=== PATIENT | female | born 1960 | race Caucasian/White ===

== ENCOUNTER → 2016-04-19 | Outpatient (CLI) | payer BC ==
--- NOTE | 2016-04-21 08:11 | MM ---
Reason for exam: screening (asymptomatic). Last mammogram was performed 1 year ago. History: Patient is postmenopausal and history of other cancer. Family history of breast cancer in paternal aunt at age 60, breast cancer in paternal cousin, and breast cancer in maternal aunt at age 80. Excisional biopsy of the left breast, 1979. Physical Findings: A clinical breast exam by your physician is recommended on an annual basis and results should be correlated with mammographic findings. MG 3D Screening Mammo W/Cad Bilateral CC and MLO view(s) were taken. Prior study comparison: April 10, 2015, bilateral MG 3d screening mammo w/cad. April 09, 2014, bilateral MG screening mammo w CAD. The breast tissue is heterogeneously dense. This may lower the sensitivity of mammography. No significant changes when compared with prior studies. ASSESSMENT: Benign, BI-RAD 2 RECOMMENDATION: Routine screening mammogram of both breasts in 1 year.
== END | disposition home or self-care (01) ==
LOC: RADMAMWWP 16:36
PROVIDERS: ATTEND Obstetrics & Gynecology
DX: Z12.31 Encounter for screening mammogram for malignant neoplasm of breast (principal)
CPT/HCPCS: 77063; G0202

== ENCOUNTER → 2017-05-02 | Outpatient (CLI) | payer BC ==
--- NOTE | 2017-05-03 11:38 | BD ---
EXAMINATION TYPE: MG DEXA axial skeleton. DATE OF EXAM: 05/02/2017 COMPARISON: 2014 CLINICAL HISTORY: Osteoporosis screening. Postmenopausal female. Height: 5'6 1/2 Weight: 146 FRAX RISK QUESTIONS: Alcohol (3 or more units per day): no Family History (Parent hip fracture): no Glucocorticoids (More than 3mos): no (Ex: prednisone, prednisolone, methylprednisolone, dexamethasone, and hydrocortisone). History of Fracture in Adulthood: no Secondary Osteoporosis: 1. Type 1 Diabetes: no 2. Hyperthyroidism: no 3. Menopause before 45: no 4. Malnutrition: no 5. Chronic liver disease: no Rheumatoid Arthritis: no Current Tobacco Use: no RISK FACTORS HISTORY OF: Postmenopausal woman: MEDICATIONS: Additional Medications: Additional History: skin cancer 2011 EXAM MEASUREMENTS: Bone mineral densitometry was performed using the [employer] System. Bone mineral density as measured about the Lumbar spine is: ----- L1-L4(G/cm2): 1.025 T Score Values are as follows: ----- L2: -1.7 ----- L3: -0.9 ----- L4: -1.6 ----- L1-L4: -1.3 Bone mineral density has: Increased 0.2% since study of: 04/11/2014 Bone mineral density about the R hip (g/cm2): 0.860 Bone mineral density about the L hip (g/cm2): 0.873 T Score values are as follows: -----R Neck: -1.3 -----L Neck: -1.2 -----R Total: -1.3 -----L Total: -1.3 Bone mineral density has: Decreased -3.3% since study of: 04/11/3014 IMPRESSION: Osteopenia (T Score between -2.5 and -1). There is slightly increased risk of fracture and the patient may be considered for treatment. Re-Screen 2-5 years. NOTE: T-SCORE=SD OF THE YOUNG ADULT MEAN.
--- NOTE | 2017-05-03 14:33 | MM ---
Reason for exam: screening (asymptomatic). Last mammogram was performed 1 year ago. History: Patient is postmenopausal and history of other cancer. Family history of breast cancer in paternal aunt at age 60, breast cancer in paternal cousin, and breast cancer in maternal aunt at age 80. Excisional biopsy of the left breast, 1979. Physical Findings: A clinical breast exam by your physician is recommended on an annual basis and results should be correlated with mammographic findings. MG 3D Screening Mammo W/Cad Bilateral CC and MLO view(s) were taken. Prior study comparison: April 19, 2016, bilateral MG 3d screening mammo w/cad. April 10, 2015, bilateral MG 3d screening mammo w/cad. The breast tissue is heterogeneously dense. This may lower the sensitivity of mammography. No suspicious abnormality. No significant changes when compared with prior studies. ASSESSMENT: Negative, BI-RAD 1 RECOMMENDATION: Routine screening mammogram of both breasts in 1 year.
== END | disposition home or self-care (01) ==
LOC: RADMAMWWP 14:37
PROVIDERS: ATTEND Obstetrics & Gynecology
DX: Z12.31 Encounter for screening mammogram for malignant neoplasm of breast (principal); M85.80 Other specified disorders of bone density and structure, unspecified site
CPT/HCPCS: 77063; 77067; 77080

== ENCOUNTER → 2019-08-20 | Outpatient (CLI) | payer BC ==
--- NOTE | 2019-08-21 16:26 | BD ---
EXAMINATION TYPE: Axial Bone Density DATE OF EXAM: 08/20/2019 COMPARISON: 05/02/2017 CLINICAL HISTORY: Height: 65.7 IN Weight: 150 LBS RISK FACTORS HISTORY OF: Active: YES Postmenopausal woman: AGE 54 MEDICATIONS: Additional Medications: CALCIUM, VIT D, EXAM MEASUREMENTS: Bone mineral densitometry was performed using the [employer] System. Bone mineral density as measured about the Lumbar spine is: ----- L1-L4(G/cm2): 0.978 T Score Values are as follows: ----- L2: -2.3 ----- L3: -1.2 ----- L4: -2.0 ----- L1-L4: -1.7 Bone mineral density has: Decreased -5.1% since study of: 05/02/2017 Bone mineral density about the R hip (g/cm2): 0.863 Bone mineral density about the L hip (g/cm2): 0.843 T Score values are as follows: -----R Neck: -1.3 -----L Neck: -1.4 -----R Total: -1.4 -----L Total: -1.5 Bone mineral density has: Decreased -2.5% since study of: 05/02/2017 IMPRESSION: Osteopenia (T Score between -2.5 and -1). There is slightly increased risk of fracture and the patient may be considered for treatment. Re-Screen 2-5 years. NOTE: T-SCORE=SD OF THE YOUNG ADULT MEAN.
--- NOTE | 2019-08-22 13:27 | MM ---
Reason for exam: screening (asymptomatic). Last mammogram was performed 1 year and 4 months ago. History: Patient is postmenopausal and history of other cancer. Family history of breast cancer in paternal aunt at age 60, breast cancer in paternal cousin, and breast cancer in maternal aunt at age 80. Excisional biopsy of the left breast, 1979. Physical Findings: A clinical breast exam by your physician is recommended on an annual basis and results should be correlated with mammographic findings. MG 3D Screening Mammo W/Cad Bilateral CC and MLO view(s) were taken. Prior study comparison: May 04, 2018, bilateral MG 3d screening mammo w/cad. May 02, 2017, bilateral MG 3d screening mammo w/cad. April 19, 2016, bilateral MG 3d screening mammo w/cad. The breast tissue is heterogeneously dense. This may lower the sensitivity of mammography. No significant changes when compared with prior studies. ASSESSMENT: Negative, BI-RAD 1 RECOMMENDATION: Routine screening mammogram of both breasts in 1 year.
== END | disposition home or self-care (01) ==
LOC: RADMAMWWP 15:21
PROVIDERS: ATTEND Obstetrics & Gynecology
DX: Z12.31 Encounter for screening mammogram for malignant neoplasm of breast (principal); M85.80 Other specified disorders of bone density and structure, unspecified site
CPT/HCPCS: 77063; 77067; 77080

== ENCOUNTER → 2020-08-29 | Outpatient (CLI) | payer BC ==
--- NOTE | 2020-09-01 11:38 | MM ---
Reason for exam: screening (asymptomatic). Last mammogram was performed 1 year ago. History: Patient is postmenopausal and history of other cancer. Family history of breast cancer in paternal aunt at age 60, breast cancer in paternal cousin, and breast cancer in maternal aunt at age 80. Excisional biopsy of the left breast, 1979. Physical Findings: A clinical breast exam by your physician is recommended on an annual basis and results should be correlated with mammographic findings. MG 3D Screening Mammo W/Cad Bilateral CC and MLO view(s) were taken. Prior study comparison: August 20, 2019, bilateral MG 3d screening mammo w/cad. May 04, 2018, bilateral MG 3d screening mammo w/cad. The breast tissue is heterogeneously dense. This may lower the sensitivity of mammography. ASSESSMENT: Negative, BI-RAD 1 RECOMMENDATION: Routine screening mammogram of both breasts in 1 year.
== END | disposition home or self-care (01) ==
LOC: RADMAMWWP 11:53
PROVIDERS: ATTEND Obstetrics & Gynecology
DX: Z12.31 Encounter for screening mammogram for malignant neoplasm of breast (principal); Z85.9 Personal history of malignant neoplasm, unspecified; Z78.0 Asymptomatic menopausal state; Z80.3 Family history of malignant neoplasm of breast
CPT/HCPCS: 77063; 77067

== ENCOUNTER → 2021-09-09 | Outpatient (CLI) | payer BC ==
--- NOTE | 2021-09-10 17:20 | MM ---
Reason for Exam: Screening (asymptomatic). Last screening mammogram was performed 12 month(s) ago. Patient History: Menarche at age 15. First Full-Term at age 25. Postmenopausal. Other cancer. 1979, Excisional Biopsy on the Left side. Paternal cousin had breast cancer. Paternal aunt had breast cancer, age 60. Maternal aunt had breast cancer, age 80. Risk Values: Roxana 5 year model risk: 1.4%. NCI Lifetime model risk: 7.1%. Prior Study Comparison: 05/04/2018 Bilateral Screening Mammogram, [facility]. 08/20/2019 Bilateral Screening Mammogram, [facility]. 08/29/2020 Bilateral Screening Mammogram, [facility]. Tissue Density: The breast tissue is heterogeneously dense. This may lower the sensitivity of mammography. Findings: Analyzed By CAD. Areas of asymmetric density remain unchanged. No significant change from prior exams. Overall Assessment: Benign, BI-RAD 2 Management: Screening Mammogram of both breasts in 1 year. 1. Patient should continue monthly self breast exams. 2. A clinical breast exam by your physician is recommended on an annual basis. 3. This exam should not preclude additional follow-up of suspicious palpable abnormalities. Electronically signed and approved by: Nas Noguera M.D. Radiologist
--- NOTE | 2021-09-14 09:15 | BD ---
EXAMINATION TYPE: Axial Bone Density DATE OF EXAM: 09/09/2021 COMPARISON: 05-02-2017 CLINICAL HISTORY: 61 years year old Female. ICD-10 CODE: ,Z78.0 menopausal,N95.1 menopausal Height: 66IN Weight: 156 FRAX RISK QUESTIONS: Secondary Osteoporosis: RISK FACTORS HISTORY OF: Active: YES Postmenopausal woman: YES MENOPAUSE AT 53 MEDICATIONS: Additional Medications: CALCIUM OFF AND ON Additional History: EXAM MEASUREMENTS: Bone mineral densitometry was performed using the [employer] System. Bone mineral density as measured about the Lumbar spine is: ----- L1-L4(G/cm2): 0.963 T Score Values are as follows: ----- L1: -1.8 ----- L2: -2.2 ----- L3: -1.5 ----- L4: -2.0 ----- L1-L4: -1.8 Bone mineral density has: Decreased -5.3% since study of: 05-02-2017 Bone mineral density about the R hip (g/cm2): 0.854 Bone mineral density about the L hip (g/cm2): 0.823 T Score values are as follows: -----R Neck: -1.2 -----L Neck: -1.5 -----R Total: -1.2 -----L Total: -1.5 Bone mineral density has: Decreased -0.6% since study of: 05-02-2017 FRAX%s: The graph provided illustrates a 8.1% chance for a major osteoporotic fx and a 0.7% chance fo r the hips probability for fx in 10 years time. IMPRESSION: Osteopenia (T Score between -2.5 and -1). There is slightly increased risk of fracture and the patient may be considered for treatment. Re-Screen 2-5 years. NOTE: T-SCORE=SD OF THE YOUNG ADULT MEAN.
== END | disposition home or self-care (01) ==
LOC: RADBDWWP 07:18
PROVIDERS: ATTEND Obstetrics & Gynecology
DX: Z12.31 Encounter for screening mammogram for malignant neoplasm of breast (principal); Z78.0 Asymptomatic menopausal state; Z80.3 Family history of malignant neoplasm of breast
CPT/HCPCS: 77063; 77067; 77080

== ENCOUNTER → 2022-09-10 | Outpatient (CLI) | payer BC ==
--- NOTE | 2022-09-13 07:52 | MM ---
Reason for Exam: Screening (asymptomatic). Last screening mammogram was performed 12 month(s) ago. Patient History: Menarche at age 15. First Full-Term at age 25. Postmenopausal. Other cancer. 1979, Excisional Biopsy on the Left side. Paternal cousin had breast cancer. Paternal aunt had breast cancer, age 60. Maternal aunt had breast cancer, age 80. Risk Values: Roxana 5 year model risk: 1.4%. NCI Lifetime model risk: 6.9%. Prior Study Comparison: 08/20/2019 Bilateral Screening Mammogram, [facility]. 08/29/2020 Bilateral Screening Mammogram, [facility]. 09/09/2021 Bilateral MG 3D screening mammo w/cad, [facility]. Tissue Density: The breast tissue is heterogeneously dense. This may lower the sensitivity of mammography. Findings: Analyzed By CAD. There is no suspicious group of microcalcifications or new suspicious mass in either breast. Overall Assessment: Negative, BI-RAD 1 Management: Screening Mammogram of both breasts in [address] [facility] will attempt to contact patient to return for supplemental views and ultrasound if indicated. Patient should continue monthly self-breast exams. A clinical breast exam by your physician is recommended on an annual basis. This exam should not preclude additional follow-up of suspicious palpable abnormalities. Note on Roxana scores and lifetime risk: 1. A Roxana score greater than 3% is considered moderate risk. If this is the case, consider specialist referral to assess eligibility for a risk reducing agent. 2. If overall lifetime risk for the development of breast cancer is 20% or higher, the patient may qualify for future screening with alternating mammogram and breast MRI. Electronically signed and approved by: Jose Kirk DO
== END | disposition home or self-care (01) ==
LOC: RADMAMWWP 09:39
PROVIDERS: ATTEND Obstetrics & Gynecology
DX: Z12.31 Encounter for screening mammogram for malignant neoplasm of breast (principal); Z78.0 Asymptomatic menopausal state; Z80.3 Family history of malignant neoplasm of breast
CPT/HCPCS: 77063; 77067

== ENCOUNTER → 2023-11-16 | Outpatient (CLI) | payer BC ==
[2023-11-16 09:32] VITALS: BP 151/89; PULSE 67; RESP 16; TEMP 98.3
--- NOTE | 2023-11-16 10:12 | P.HPOB ---
History of Present Illness H&P Date: 11/16/23 Chief Complaint: The patient is here for her routine gynecologic exam and ma mmogram. This is a 63-year-old with an LMP of 2013. The patient is here to establish with this office. It has been about a year since her last pelvic exam. She previously saw Dr. Galindo for her gynecologic care. She is without gynecologic complaints and denies any postmenopausal bleeding. She states she has been seen regularly for gynecologic care and Pap smears. She has no history of cervical problems. Review of Systems The patient has gained 6 pounds over the last year. She denies respiratory, cardiac, or G.I. problems. Past Medical History Past Medical History: Cancer, GERD/Reflux Additional Past Medical History / Comment(s): BASAL CELL REMOVED FROM NOSE AND SHOULDER, HEART MURMUR. Intermittent neutropenia(followed by evaluator transfer students). 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 History of Any Multi-Drug Resistant Organisms: None Reported Past Surgical History: Breast Surgery Additional Past Surgical History / Comment(s): BENIGN BREAST CYST REMOVED 1982. Colonoscopy 2022(next after 10yr). Past Anesthesia/Blood Transfusion Reactions: No Reported Reaction Past Psychological History: No Psychological Hx Reported Smoking Status: Never smoker Past Alcohol Use History: Occasional (2-3 drinks per week.) Past Drug Use History: None Reported Additional History: She has been since 1982. 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 She now watches one of her grandchildren during the week. - Past Family History Father Family Medical History: Cancer, Hypertension Additional Family Medical History / Comment(s): Sinus cancer. . Paternal cousin had breast cancer. Mother Family Medical History: Cancer Additional Family Medical History / Comment(s): Brain tumor. . Maternal aunt had breast cancer. Brother(s) Family Medical History: Liver Disease Additional Family Medical History / Comment(s): Alcohol induced liver cirrhosis. . Medications and Allergies Home Medications Medication Instructions Recorded Confirmed Type Alendronate Sodium [Fosamax] 70 mg PO WEEKLY 11/16/23 11/16/23 History Calcium Carbonate [Calcium] 600 mg PO DAILY 11/16/23 11/16/23 History Cholecalciferol (Vitamin D3) 1 cap PO DAILY 11/16/23 11/16/23 History [Vitamin D3 (125 MCG = 5,000 IU)] Cyanocobalamin [Vitamin B-12] 1 tab PO DAILY 11/16/23 11/16/23 History Famotidine [Pepcid] 10 mg PO DAILY 11/16/23 11/16/23 History Multivitamin [Multivitamins Adult 1 tab PO DAILY 11/16/23 11/16/23 History Gummies] Allergies Allergy/AdvReac Type Severity Reaction Status Date / Time nitrofurantoin Allergy Rapid Unverified 11/16/23 09:26 [From Macrobid] Heart Rate prednisone Allergy Rapid Unverified 11/16/23 09:26 Heart Rate Sulfa (Sulfonamide Allergy Rash/Hives Unverified 11/16/23 09:26 Antibiotics) Exam Vital Signs Temp Pulse Resp BP Pulse Ox 11/16/23 09:28 98.3 F 67 16 151/89 99 Intake and Output 11/15/23 11/16/23 11/16/23 22:59 06:59 14:59 Other: Weight 73.936 kg Height 5 feet 7 inches, weight 163 pounds, BMI 25.5. This is a well-developed well-nourished white female who is alert and oriented times 3 in no acute distress. HEENT: Within normal limits. NECK: Supple without mass or thyromegaly. CHEST AND LUNGS: Clear to auscultation. HEART: Regular rate and rhythm. BREASTS: Are without mass or discharge. AXILLARY EXAM: Negative for adenopathy. BACK: Negative for CVA tenderness. ABDOMEN: Soft, nontender, without palpable masses. PELVIC EXAM: Normal external genitalia with minimal atrophy. Cervix and vagina appear normal with minimal atrophy. There is no unusual discharge. There is no evidence of prolapse. The uterus is midposition, nongravid size and nontender. There are no palpable adnexal masses or tenderness. RECTAL EXAM: Rectovaginal exam is negative for mass or tenderness and is negative for occult blood. EXTREMITIES: Nontender. IMPRESSION: 1. 63-year-old menopausal female with normal gynecologic exam. 2. Elevated blood pressure. 3. History of osteopenia and she has been on alendronate since 2021. PLAN: 1. Pap smear cotest was performed. If negative, we will plan on repeating the Pap smear cotest in about 4 to 5 years and if that 1 is negative we will plan on discontinuing Pap smears. 2. Self breast awareness was discussed with the patient. We have also discussed symptoms associated with inflammatory breast cancer. 3. Screening mammogram will be done today. 4. Osteoporosis prevention was discussed. I have stressed the importance of adequate calcium, vitamin D and regular exercise. Recommended amounts of calcium and vitamin D were also discussed. Bone density test will be done today. She will continue on alendronate at this time as prescribed by her PCP. 5. We have discussed her elevated blood pressure. She will check her own blood pressure at home since she does have a blood pressure cuff. This will be done on a regular basis and she will follow-up with her PCP for blood pressure elevations. 6. She was advised to return in one year for her annual well woman exam.
--- NOTE | 2023-11-16 11:56 | BD ---
EXAMINATION TYPE: Axial Bone Density DATE OF EXAM: 11/16/2023 CLINICAL HISTORY: 63 years old Female. ICD-10 CODE: Z78.0 POST MENOPAUSAL WITHOUT HRT Height: 66" Weight: 161lbs FRAX RISK QUESTIONS: Alcohol (3 or more units per day): No Family History (Parent hip fracture): No Glucocorticoids (More than 3mos): No (Ex: prednisone, prednisolone, methylprednisolone, dexamethasone, and hydrocortisone). History of Fracture in Adulthood: No Secondary Osteoporosis: 1. Type 1 Diabetes: No 2. Hyperthyroidism: No 3. Menopause before 45: No 4. Malnutrition: No 5. Chronic liver disease: No Rheumatoid Arthritis: No Current Tobacco Use: No RISK FACTORS HISTORY OF: Hip Fracture (Right/Left): No Spine Fracture: No History of Wrist Fracture: No Surgery to Spine/Hip(right/left)/Wrist (right/left): No MEDICATIONS: Thyroid Medications: No Osteoporosis Medications: Yes Which medication: Alendronate, once a week for two years EXAM MEASUREMENTS: Bone mineral densitometry was performed using the [employer] System. Bone mineral density as measured about the Lumbar spine is: ----- L1-L4(G/cm2): 1.041 T Score Values are as follows: ----- L1: -1.4 ----- L2: -1.5 ----- L3: -0.7 ----- L4: -1.2 ----- L1-L4: -1.2 Z Score Values are as follows: ----- L1: -0.3 ----- L2: -0.4 ----- L3: 0.4 ----- L4: -0.1 ----- L1-L4: -0.1 Bone mineral density has: increased 8.1% since study of: 09/09/2021 Bone mineral density about the R hip (g/cm2): 0.894 Bone mineral density about the L hip (g/cm2): 0.881 T Score values are as follows: -----R Neck: -0.96 -----L Neck: -0.9 -----R Total: -0.9 -----L Total: -1.0 Z Score values are as follows: -----R Neck: 0.2 -----L Neck: 0.3 -----R Total: -0.1 -----L Total: -0.2 Bone mineral density has: increased 6.0% since study of: 09/09/2021 FRAX%s: The graph provided illustrates a 7.5% chance for a major osteoporotic fx and a 0.4% chance fo r the hips probability for fx in 10 years time. IMPRESSION: Osteopenia (T Score between -2.5 and -1). There is slightly increased risk of fracture and the patient may be considered for treatment. Re-Screen 2-5 years. NOTE: T-SCORE=SD OF THE YOUNG ADULT MEAN. [facility], , 11/16/2023 11:54 AM
--- NOTE | 2023-11-17 14:03 | MM ---
Reason for Exam: Screening (asymptomatic). Last mammogram was performed 1 year(s) and 3 month(s) ago. Patient History: Menarche at age 15. First Full-Term at age 25. Postmenopausal. Other cancer. 1979, Excisional Biopsy on the Left side. Paternal cousin had breast cancer, age 40. Paternal aunt had breast cancer, age 60. Maternal aunt had breast cancer, age 80. Risk Values: Roxana 5 year model risk: 1.5%. NCI Lifetime model risk: 6.7%. Prior Study Comparison: 08/29/2020 Bilateral Screening Mammogram, [facility]. 09/09/2021 Bilateral MG 3D screening mammo w/cad, [facility]. 09/10/2022 Bilateral MG 3D screening mammo w/cad, [facility]. Tissue Density: There are scattered areas of fibroglandular density. Findings: Analyzed By CAD. Right breast: There is no suspicious group of microcalcifications or new suspicious mass. Left breast: There is no suspicious group of microcalcifications or new suspicious mass. Overall Assessment: Negative, BI-RAD 1 Management: Screening Mammogram of both breasts in [address] [facility] will attempt to contact patient to return for supplemental views and ultrasound if indicated. Patient should continue monthly self-breast exams. A clinical breast exam by your physician is recommended on an annual basis. This exam should not preclude additional follow-up of suspicious palpable abnormalities. Note on Roxana scores and lifetime risk: 1. A Roxana score greater than 3% is considered moderate risk. If this is the case, consider specialist referral to assess eligibility for a risk reducing agent. 2. If overall lifetime risk for the development of breast cancer is 20% or higher, the patient may qualify for future screening with alternating mammogram and breast MRI. [facility], , 11/17/2023 2:00 PM. Electronically signed and approved by: Jose Kirk DO
== END ==
LOC: WWCWWP 09:12
PROVIDERS: ATTEND Obstetrics & Gynecology
DX: Z12.31 Encounter for screening mammogram for malignant neoplasm of breast (principal); M81.0 Age-related osteoporosis without current pathological fracture; R03.0 Elevated blood-pressure reading, without diagnosis of hypertension; M85.88 Other specified disorders of bone density and structure, other site; Z78.0 Asymptomatic menopausal state; Z80.3 Family history of malignant neoplasm of breast; Z88.2 Allergy status to sulfonamides; Z88.1 Allergy status to other antibiotic agents; Z88.8 Allergy status to other drugs, medicaments and biological substances; Z79.899 Other long term (current) drug therapy
CPT/HCPCS: 77063; 77067; 77080